=== PATIENT | female | born 1995 | race African-American/Black ===

== ENCOUNTER 2019-11-22 19:42 | Outpatient (CLI) | payer MEDICAID ==
[~2019-11-22] VITALS: Ht 145 cm; Wt 74.5 kg
--- NOTE | 2019-11-22 19:50 | NUR ---
BROOKETHANH presented to unit via ambulation from ED, accompanied by s.o., with c/o DIZZY,BLURRY VISION. BROOKETHANH weighed, gowned, voided, and to bed. EFHM and TOCO applied, VS taken. ZACKERYTHANH Stephens oriented to bed controls, call light, TV, heat, and A/C controls.
[2019-11-22 20:03] VITALS: BP 133/80
[2019-11-22 20:20] VITALS: BP 136/82
[2019-11-22 20:44] VITALS: BP 117/73
[2019-11-22 20:47] LABS: COLOR,URINE YELLOW
[2019-11-22 20:48] LABS: BILIRUBIN,URINE NEGATIVE (NEGATIVE); CLARITY,URINE CLEAR; GLUCOSE, URINE (UA) NEGATIVE (NEGATIVE); KETONES,URINE NEGATIVE (NEGATIVE); LEUKOCYTE ESTERASE ,URINE NEGATIVE (NEGATIVE); NITRITE,URINE NEGATIVE (NEGATIVE); PH,URINE 6.5 (5-9); PROTEIN,URINE NEGATIVE (NEGATIVE)
[2019-11-22 20:51] LABS: BACTERIA,URINE TRACE /HPF
[2019-11-22 20:57] VITALS: BP 116/70
[2019-11-22 21:14] VITALS: BP 110/70
[2019-11-22 21:27] VITALS: BP 113/73
[2019-11-22] MEDS ORDERED: PREN-142 PO (21:34)
--- NOTE | 2019-11-22 21:45 | NUR ---
D/C instructions given & explained, reassurance given, instructed pt. to cont. to monitor dizziness, both pt. & SO verbalized understanding & very appreciative. Copy of D/C instructions to pt. Pt. left [facility] ambulatory escorted by SO, to home via private vehicle.
--- NOTE | 2019-11-23 08:26 | Physician Query-Final Dx ---
Clinic Account Progress/Dx Physician Query: Please give diagnosis Please give # weeks gestation Date of Service Nov 22, 2019 at 19:42 NILTON WILSON Nov 23, 2019 08:26
== END 2019-11-22 21:45 | disposition home or self-care (01) ==
LOC: WSo 19:42 → LDRP 19:42 → WSo 21:45
PROVIDERS: ATTEND Obstetrics & Gynecology
DX: O99.89 Other specified diseases and conditions complicating pregnancy, childbirth and the puerperium (principal); R42 Dizziness and giddiness; Z3A.38 38 weeks gestation of pregnancy
CPT/HCPCS: 81000; 99212

== ENCOUNTER 2019-11-27 05:59 | Inpatient (IN) | payer MEDICAID ==
[2019-11-27] VITALS (76 sets, daily range): BP systolic 80–148; BP diastolic 41–101
[~2019-11-27] VITALS: Ht 142 cm; Wt 75.9 kg
[~2019-11-27 05:59] MED LIST: PREN-142 PO
[2019-11-27] MEDS ORDERED: AMPICILLIN FOR IV USE 2,000 MG in WATER (STERILE) FOR INJECTION 14.8 ML IV SCH (06:01)
--- NOTE | 2019-11-27 06:05 | NUR ---
THANH CAMPOS presented to unit via from ED, accompanied by S/O, with c/o 39WK INDUCTION. THANH CAMPOS weighed, gowned, voided, and to bed. EFHM and TOCO applied, VS taken. THANH CAMPOS oriented to bed controls, call light, TV, heat, and A/C controls.
[2019-11-27] MEDS ORDERED: D5 LR IV SOLUTION 1,000 ML IV ONE (06:26)
[2019-11-27] MEDS ORDERED: WATER (STERILE) FOR INJECTION 20 ML ONE (06:26)
[2019-11-27] MEDS ORDERED: AMPICILLIN FOR IV USE 2,000 MG VIAL ONE (06:26)
[2019-11-27] MEDS: D5 LR IV SOLUTION 1,000 ML IV SCH ×3 (06:39→23:42)
[2019-11-27] MEDS ORDERED: LACTATED RINGERS 1,000 ML IV ONE ×2 (06:55→08:11)
[2019-11-27 07:08] LABS: BASOPHILS % (AUTO) 0 % (0-10); EOSINOPHILS # (AUTO) 0.1 10^3/uL (0.0-0.3); EOSINOPHILS % (AUTO) 1 % (0-10); HEMATOCRIT 36 % (35-52); HEMOGLOBIN 11.9 G/DL (11.5-16.0); LYMPHOCYTES % (AUTO) 32 % (12-44); MEAN CORPUSCULAR HEMOGLOBIN 28 PG (25-34); MEAN CORPUSCULAR HGB CONC 34 G/DL (32-36); MEAN CORPUSCULAR VOLUME 84 FL (80-99); MEAN PLATELET VOLUME 11.3 FL (7.4-10.4); MONOCYTES # (AUTO) 0.6 X 10^3 (0.0-1.0); MONOCYTES % (AUTO) 6 % (0-12); NEUTROPHILS # (AUTO) 5.6 X 10^3 (1.8-7.8); NEUTROPHILS % (AUTO) 60 % (42-75); PLATELET COUNT 241 10^3/uL (130-400); RED CELL DISTRIBUTION WIDTH 13.3 % (10.0-14.5); WHITE BLOOD COUNT 9.4 10^3/uL (4.3-11.0)
[2019-11-27] MEDS ORDERED: SUFENTA 0.6MCG/ML BUPIVA 0.125 100 ML ONE (07:23)
[2019-11-27] MEDS: OXYTOCIN PRE-MIX DRIP 500 ML IV SCH (07:24)
[2019-11-27] MEDS ORDERED: fentaNYL INJECTION 100 MCG/2 ML AMP ONE (07:31)
[2019-11-27] MEDS ORDERED: BUPIVACAINE 0.25% 30 ML (SENSORCAINE) VIAL ONE (07:31)
--- NOTE | 2019-11-27 07:31 | History & Physical-OB/GYN ---
History of Present Illness History of Present Illness Reason for visit/HPI Ms. Issa at 39 weeks, presents for Pitocin Induction of Labor. She is GBS Positive Date of Admission Nov 27, 2019 at 05:59 Date Seen by a Provider: Nov 27, 2019 Time Seen by a Provider: 07:00 I consulted on this patient on 11/27/19 07:26 Attending Physician Teddy Singh DO Admitting Physician Teddy Singh DO Consult Allergies and Home Medications Allergies Coded Allergies: No Known Drug Allergies (Unverified , 11/22/19) Home Medications Vit No.124/Iron/FA 1 Each Tablet, 1 EACH PO DAILY, (Reported) Patient Home Medication List Home Medication List Reviewed: Yes Past Afnylbk-Mwmnxp-Nvboxe Hx Patient Social History Marrital Status: single Number of Children: 0 Number of living children: 0 Employed/Student: employed Alcohol Use: Denies Use Recreational Drug Use: No Smoking Status: Never a Smoker 2nd Hand Smoke Exposure: No Physical Abuse Screen: No Sexual Abuse: No Recent Foreign Travel: No Contact w/other who traveled: No Recent Hopitalizations: No Recent Infectious Disease Expo: No Seasonal Allergies Seasonal Allergies: No Surgeries No Respiratory No Cardiovascular No Neurological No Reproductive System Expected Date of Delivery: Dec 04, 2019 Genitourinary No Gastrointestinal No Musculoskeletal No Endocrine History of Endocrine Disorders: No HEENT History of HEENT Disorders: No Cancer No Psychosocial History of Psychiatric Problem: No Integumentary History of Skin or Integumenta: No Family Medical History Family Hx: Patient reports no known family medical history. Review of Systems Constitutional: see HPI Physical Exam Physical Exam Vital Signs Vital Signs Date Time Temp Pulse Resp B/P (MAP) Pulse Ox O2 Delivery O2 Flow Rate FiO2 11/27/19 06:28 36.4 88 18 97 Room Air Capillary Refill : Less Than 3 Seconds Labs Laboratory Tests 11/27/19 06:25: White Blood Count 9.4, Red Blood Count 4.21L, Hemoglobin 11.9, Hematocrit 36, Mean Corpuscular Volume 84, Mean Corpuscular Hemoglobin 28, Mean Corpuscular Hemoglobin Concent 34, Red Cell Distribution Width 13.3, Platelet Count 241, Me an Platelet Volume 11.3H, Neutrophils (%) (Auto) 60, Lymphocytes (%) (Auto) 32, Monocytes (%) (Auto) 6, Eosinophils (%) (Auto) 1, Basophils (%) (Auto) 0, Neutrophils # (Auto) 5.6, Lymphocytes # (Auto) 3.0, Monocytes # (Auto) 0.6, Eosinophils # (Auto) 0.1, Basophils # (Auto) 0.0 General Appearance: No Apparent Distress, WD/WN Respiratory: Chest Non Tender, Lungs Clear, Normal Breath Sounds Cardiovascular: Regular Rate, Rhythm, No Murmur Abdominal: normal bowel sounds, non tender Vagina: WNL Cervix: WNL, Other (1.5 cm/50%/-3 Vertex/Intact) Cervix OS: open Uterus: Enlarged (Gravid) Extremity: Normal Capillary Refill, Normal Inspection, Normal Range of Motion, No Calf Tenderness Assessment/Plan Assessment and Plan Intrauterine at 39 weeks 2. GBS Positive 3. GDM A1 Admission Diagnosis Admission Status: Inpatient Order (span 2 midnights) Reason for Inpatient Admission: Intrauterine at 39 weeks 2. GBS Positive 3. GDM A1 Clinical Quality Measures DVT/VTE Risk/Contraindication: Risk Factor Score Per Nursin RFS Level Per Nursing on Admit: 1=Low/No VTE PPX TEDDY SINGH DO Nov 27, 2019 07:31
[2019-11-27] MEDS: EPIDURAL (SUFENTA 0.6MCG/ML BUPIVA 0.125%) 100 ML BAG EPI SCH ×2 (08:04→18:15)
[2019-11-27] MEDS ORDERED: ONDANSETRON 4 MG/2 ML (SDV) Z0FRAN IV PRN (08:15)
[2019-11-27] MEDS ORDERED: CATHETER FLUSH 10 ML SYR IV PRN (08:15)
[2019-11-27] MEDS ORDERED: diphenhydrAMINE 50 MG/ML INJ (BENADRYL) IV PRN (08:15)
[2019-11-27] MEDS ORDERED: NALOXONE 0.4 MG/ML 1 ML (NARCAN) VIAL IV PRN (08:15)
--- NOTE | 2019-11-27 08:30 | NUR ---
DR TEMPLE NOTIFIED OF BLOOD SUGAR. DR TEMPLE ORDERS ACCUCHECKS Q4 HR WHILE PT IN LABOR.
[2019-11-27] MEDS: AMPICILLIN FOR IV USE 1,000 MG in WATER (STERILE) FOR INJECTION 7.4 ML IV SCH ×4 (10:11→23:45)
--- NOTE | 2019-11-27 11:50 | NUR ---
DR TEMPLE UPDATED ON PT REPORT. SVE, PITOCIN ON 20, UC 2-5 MIN IRRREGULAR, REACTIVE FHT. DR TEMPLE STATES WE MAY GO UP TO 30 ON PITOCIN IF NEEDED.
--- NOTE | 2019-11-27 14:23 | NUR ---
THIS RN UPDATES DR TEMPLE ON PT REPORT. SVE 3 CM, PITOCIN 28, FHT STRIP DESCRIBED. NO NEW ORDERS.
--- NOTE | 2019-11-27 18:18 | NUR ---
DR UPDATED ON PT REPORT. SVE 5CM, T REVIEWED WITH . PITOCIN RATE REPORTED. NO NEW ORDERS.
[2019-11-28] VITALS (35 sets, daily range): BP systolic 100–145; BP diastolic 55–84
[2019-11-28] MEDS: EPIDURAL (SUFENTA 0.6MCG/ML BUPIVA 0.125%) 100 ML BAG EPI SCH (02:53)
[2019-11-28] MEDS ORDERED: LIDOCAINE 1% INJ 20 ML 20 ML VIAL ONE (02:58)
[2019-11-28] MEDS: AMPICILLIN FOR IV USE 1,000 MG in WATER (STERILE) FOR INJECTION 7.4 ML IV SCH (03:44)
[2019-11-28] MEDS: OXYTOCIN PRE-MIX DRIP 500 ML IV SCH (04:40)
--- NOTE | 2019-11-28 05:37 | NUR ---
Urgent c/s called per Dr. Singh as pt. has been pushing for almost 1 hr without making progress, baby appears to be OP. Will call supervisor mending to notify.
[2019-11-28] MEDS ORDERED: CITRIC ACID/SOB CIT (BICITRA) 30 ML UDC ONE (05:38)
[2019-11-28] MEDS ORDERED: FAMOTIDINE 20MG/2ML IV (PEPCID) ONE (05:38)
[2019-11-28] MEDS ORDERED: METOCLOPRAMIDE INJ 10 MG/2 ML (REGLAN) ONE (05:38)
--- NOTE | 2019-11-28 05:39 | NUR ---
Called line supervisor to notify for urgent c/s for her to call surgery crew.
[2019-11-28] MEDS ORDERED: ceFAZolin 2 GM/50 ML NS 50 ML ONE (05:41)
[2019-11-28] MEDS ORDERED: LACTATED RINGERS 1,000 ML IV PRN ×2 (05:49)
--- NOTE | 2019-11-28 05:49 | Progress Note ---
Standard Progress Note Progress Notes/Assess & Plan Date Seen by a Provider: Nov 28, 2019 Time Seen by a Provider: 05:30 Progress/Assessment & Plan Subjective: Ms. Issa progressed to complete. Objective: Cervix: Complete/100%/0 Vertex Assessment: Intrauterine at 39 weeks 2. GBS Positive 3. GDM A1 Plan: Ms. Issa pushed for approximately an hour with no descent of the head--caput secundum. In the process she had several late decelerations. This was discussed with Ms. Issa and her --we are going to proceed with an immediate . The procedure and its associated risks were discussed. All questions were answered. Informed consent was obtained. SHANIA TEMPLE DO Nov 28, 2019 05:49
[2019-11-28] MEDS ORDERED: FAMOTIDINE 20MG/2ML IV (PEPCID) IV ONE (06:00)
[2019-11-28] MEDS ORDERED: CITRIC ACID/SOB CIT (BICITRA) 30 ML UDC PO ONE (06:00)
[2019-11-28] MEDS ORDERED: METOCLOPRAMIDE INJ 10 MG/2 ML (REGLAN) IV ONE (06:00)
[2019-11-28] MEDS ORDERED: BUPIVACAINE 0.25% 30 ML (SENSORCAINE) VIAL ONE (06:15)
[2019-11-28] MEDS ORDERED: LIDOCAINE PF 2% 5 ML (XYLOCAINE) VIAL ONE (06:15)
[2019-11-28] MEDS ORDERED: fentaNYL INJECTION 100 MCG/2 ML AMP ONE (06:15)
[2019-11-28] MEDS ORDERED: OXYTOCIN PRE-MIX DRIP 500 ML IV SCH (07:22)
[2019-11-28] MEDS ORDERED: BISACODYL 10 MG SUPP (DULCOLAX) PR NR (07:30)
[2019-11-28] MEDS ORDERED: MEASLES,MUMPS,RUBELLA 1 EA INJ SC SCH (07:30)
[2019-11-28] MEDS ORDERED: ONDANSETRON 4 MG/2 ML (SDV) Z0FRAN IVP PRN (07:30)
[2019-11-28] MEDS ORDERED: TETANUS,DIPTH,PERTUSS P/F (BOOSTRIX) 0.5 ML VIAL IM SCH (07:30)
[2019-11-28] MEDS ORDERED: fentaNYL INJECTION 100 MCG/2 ML AMP IVP PRN (07:30)
--- NOTE | 2019-11-28 07:34 | Cesarean Section Operative ---
Procedure Procedure Note Pre-operative Diagnosis: Darcie Issa is a (24 /Para / ,Gestational Age (wks)39 with [GBS Positive 3. GDM A1 4. Secondary of Descent of Vertex 5. Late Heart Deceleration 6. Caput Secundum] Post-operative Diagnosis: same [and Right Occiput Transverse and Nuchal Cord x 1] Procedure: [Primary] low transverse section Physician: SHANIA TEMPLE Skip Tracer: [None] Estimated blood loss: [400] mL Disposition: [A healthy viable male to nursery, mother to Recovery Room] Findings: Viable [Male] , Apgars [], weight [6 lb 14 oz], intact placenta, 3vc, normal appearing uterus, tubes, and ovaries. Indications:Darcie Issa is a (24 /Para / ,Gestational Age (wks)39 presenting for [Pitocin Induction of Labor. After progressing to complete, she pushed for an hour with no further descent and having several late decelerations. It was discussed with Ms. Issa and her and decided to proceed with an immediate C-Seciton]. Procedure Details: The patient was seen in pre-op and the procedure was discussed with the patient in full, including the risks, benefits, and alternatives. All questions were answered. The patient was taken to the operating room and a time out was performed, verifying patient and procedure. After Epidural anesthesia was placed by our anesthesia colleagues, the patient was placed in the dorsal supine with leftward tilt for uterine displacement.~ He r abdomen was then prepped and draped in the typical sterile fashion. A Pfannenstiel skin incision was made using a scalpel and carried down through the underlying fascia. The fascia was incised in the midline and tented up using Deborah clamps. On both the inferior and superior fascia side the rectus muscle was dissected off bluntly and sharply using Lawrence scissors. The peritoneum was identified and entered bluntly in the midline. This was then stretched laterally using manual strength. After entering the abdominal cavity and confirming lack of intraperitoneal adhesions, a large López retractor was placed and the lower uterine segment was visualized. A bladder flap was created with the use of Metzenbaum scissors.~ A scalpel was utilized to make a low transverse uterine incision. Amniotomy was performed with an Allis clamp with return of clear fluid. The infant's head was grasped and brought to the level of the incision. Fundal pressure was applied and infant was delivered without difficulty. Mouth and nares were suctioned with bulb suction. After the umbilical cord was clamped and cut, the infant was handed off to the pediatric staff where NRP protocol was followed. A sample of cord blood was then obtained. The placenta was delivered intact via uterine massage. The uterus was exteriorized and cleared of all clots and debris. The uterine incision was closed using 0 Vicryl in a running locked fashion. A second imbricated layer was placed using 0 Vicryl in a running fashion as well. The uterus was flexed forward and the posterior rectouterine space was inspected and cleared of all clots and debris. Again the hysterotomy site was examined and hemostasis was observed. The bilateral tubes and ovaries appeared normal. The uterus was placed back into the abdominal cavity and abdominal gutters were cleared of all clots and debris. A final check of the uterine incision showed it to be hemostatic. The peritoneum was closed using 3-0 Vicryl in a running fashion. The fascia was closed with 0 Vicryl in a running fashion. The subcutaneous space was hemostatic, and irrigated. The subcutaneous space was closed with 3-0 Vicryl in several single interrupted stitches. The skin was then closed using 4-0 Monocryl in a running subcuticular fashion. The skin edges were reapproximated together and were hemostatic. A pressure dressing was applied. All sponge, lap and needle counts were correct at the end of the procedure per nursing. Vitals - Labs Vital Signs - I&O Vital Signs Date Time Temp Pulse Resp B/P (MAP) Pulse Ox O2 Delivery O2 Flow Rate FiO2 11/28/19 06:15 108 18 107/63 (78) Room Air 11/28/19 06:00 37.4 110 18 107/59 (75) Room Air 11/28/19 05:45 115 18 101/55 (70) Room Air 11/28/19 05:30 37.3 101 18 141/67 (91) 97 Room Air 11/28/19 05:15 111 18 143/68 (93) Room Air 11/28/19 05:00 107 18 141/76 (97) Room Air 11/28/19 04:45 97 18 145/81 (102) 98 Room Air 11/28/19 04:30 37.2 101 18 135/81 (99) 97 Room Air 11/28/19 04:15 96 18 137/84 (101) 98 Room Air 11/28/19 04:00 93 18 128/75 (92) 97 Room Air 11/28/19 03:45 36.8 93 18 123/76 (92) 97 Room Air 11/28/19 03:30 96 18 139/83 (101) 97 Room Air 11/28/19 03:15 90 18 130/79 (96) 97 Room Air 11/28/19 03:00 93 18 121/78 (92) 97 Room Air 11/28/19 02:45 36.9 91 18 117/67 (84) 98 Room Air 11/28/19 02:30 93 18 119/66 (83) 97 Room Air 11/28/19 02:15 92 18 130/72 (91) 97 Room Air 11/28/19 02:00 96 18 115/64 (81) 98 Room Air 11/28/19 01:45 90 18 125/66 (85) 97 Room Air 11/28/19 01:30 90 18 119/68 (85) 97 Room Air 11/28/19 01:15 91 18 131/76 (94) 97 Room Air 11/28/19 01:00 86 18 135/78 (97) 99 Room Air 11/28/19 00:45 37.1 96 18 134/77 (96) 98 Room Air 11/28/19 00:30 92 18 124/70 (88) 98 Room Air 11/28/19 00:15 90 18 125/70 (88) 98 Room Air 11/28/19 00:00 90 18 118/71 (87) 97 Room Air 11/27/19 23:45 36.8 88 18 127/73 (91) 98 Room Air 11/27/19 23:30 92 18 140/78 (98) 99 Room Air 11/27/19 23:15 88 18 119/65 (83) 97 Room Air 11/27/19 23:00 86 18 135/78 (97) 98 Room Air 11/27/19 22:45 85 18 134/72 (92) 99 Room Air 11/27/19 22:30 86 18 134/75 (94) 100 Room Air 11/27/19 22:15 36.6 84 18 136/74 (94) 98 Room Air 220 22:05 79 18 123/66 (85) 99 Room Air 220 22:00 80 18 127/74 (91) 98 Room Air 220 21:55 80 18 124/69 (87) 99 Room Air 220 21:50 76 18 117/65 (82) 97 Room Air 220 21:45 36.9 79 18 128/71 (90) 98 Room Air 220 21:40 81 18 121/67 (85) 98 Room Air 220 21:35 80 18 118/64 (82) 98 Room Air 220 21:30 82 18 126/72 (90) 97 Room Air 11/27/19 21:15 75 18 126/73 (90) 98 Room Air 11/27/19 21:00 77 18 141/83 (102) 98 Room Air 220 20:45 94 18 148/94 (112) 98 Room Air 20 20:30 80 18 130/79 (96) 98 Room Air 20 20:15 80 18 138/85 (102) 99 Room Air 20 20:00 77 18 128/70 (89) 99 Room Air 11/27/19 19:45 36.6 78 18 137/86 (103) 100 Room Air 11/27/19 19:30 76 18 148/88 (108) 99 Room Air 11/27/19 19:15 82 18 111/64 (80) 99 Room Air 11/27/19 19:00 74 120/59 (79) 99 Room Air 2/20 18:45 77 112/61 (78) 98 Room Air 2/20 18:30 77 105/57 (73) 98 Room Air 2/20 18:15 83 111/53 (72) 99 Room Air 2/20 18:00 36.6 76 16 118/70 (86) 98 Room Air 2/20 17:45 75 110/60 (77) 98 Room Air 2/20 17:30 72 113/66 (82) 99 Room Air 2/20 17:15 73 112/68 (83) 99 Room Air 220 17:00 77 124/57 (79) 100 Room Air 2/20 16:45 80 119/67 (84) 100 Room Air 11/27/19 16:30 75 105/57 (73) 99 Room Air 20 16:15 75 104/59 (74) 99 Room Air 220 16:00 77 110/59 (76) 98 Room Air 2 15:45 36.2 75 121/74 (90) 99 Room Air 11/27/19 15:30 78 16 124/72 (89) 98 Room Air 20 15:15 78 125/77 (93) 99 Room Air 11/27/19 15:00 75 128/78 (95) 99 Room Air 11/27/19 14:45 84 130/78 (95) 100 Room Air 11/27/19 14:30 78 121/79 (93) 99 Room Air 11/27/19 14:15 36.5 75 16 117/78 (91) 98 Room Air 11/27/19 14:00 Room Air 11/27/19 13:45 Room Air 11/27/19 13:30 75 111/68 (82) 98 Room Air 11/27/19 13:15 73 116/67 (83) 98 Room Air 11/27/19 13:00 76 111/66 (81) 99 Room Air 11/27/19 12:45 76 97/55 (69) 99 Room Air 11/27/19 12:30 36.7 87 16 100/57 (71) 99 Room Air 11/27/19 12:15 86 107/64 (78) 100 Room Air 11/27/19 12:00 75 96/52 (67) 98 Room Air 11/27/19 11:45 75 94/53 (67) 98 Room Air 11/27/19 11:30 75 97/53 (68) 98 Room Air 20 11:15 72 91/53 (66) 99 Room Air 11/27/19 11:00 36.4 76 105/101 (102) 99 Room Air 20 10:45 73 105/63 (77) 98 Room Air 2 10:30 74 107/65 (79) 99 Room Air 20 10:15 82 103/66 (78) 98 Room Air 220 10:00 36.1 90 16 117/69 (85) 99 Room Air 11/27/19 09:45 75 111/68 (82) 98 Room Air 11/27/19 09:30 82 100 Room Air 11/27/19 09:15 78 106/69 (81) 99 Room Air 11/27/19 09:00 76 108/63 (78) 98 Room Air 11/27/19 08:50 82 105/64 (78) Room Air 11/27/19 08:45 90 108/83 (91) 98 Room Air 11/27/19 08:40 79 105/61 (76) Room Air 11/27/19 08:35 80 106/61 (76) Room Air 11/27/19 08:30 87 100/58 (72) 98 Room Air 11/27/19 08:25 81 109/63 (78) Room Air 11/27/19 08:20 77 102/59 (73) Room Air 11/27/19 08:15 73 113/57 (75) 98 Room Air 11/27/19 08:11 69 80/41 (54) Room Air 11/27/19 08:08 80 82/51 (61) Room Air 11/27/19 08:05 85 142/63 (89) Room Air 11/27/19 08:00 76 135/59 (84) 98 Room Air 11/27/19 07:45 36.4 85 16 139/65 (89) 98 Room Air I & O 11/28/19 07:00 Intake Total 3053.8 ml Output Total 0 ml Balance 3053.8 ml Labs Laboratory Tests 11/27/19 10:08: Glucometer 95 11/27/19 14:29: Glucometer 86 11/27/19 19:36: Glucometer 95 11/28/19 02:55: Glucometer 127H SHANIA TEMPLE DO Nov 28, 2019 07:34
[2019-11-28] MEDS: KETOROLAC 30 MG/ML VIAL IV SCH ×3 (08:18→21:22)
--- NOTE | 2019-11-28 09:14 | Anesthesia-Regional Post-Op ---
Regional Patient Condition Mental Status: Alert, Oriented x3 Circulation: Same as Pre-Op Headache: Absent Sensation: Full Recovery Motor Block: Absent Post Op Complications Complications None Follow Up Care/Instructions Patient Instructions None needed. Anesthesia/Patient Condition Patient is doing well, no complaints, stable vital signs, no apparent adverse anesthesia problems. No complications reported per nursing. ELIS CLARK CRNA Nov 28, 2019 09:14
--- NOTE | 2019-11-28 09:30 | NUR ---
Report from Ryan Kwon RN. Care of patient assumed.
--- NOTE | 2019-11-28 09:54 | NUR ---
Dulcolax Suppository placed by this RN.
--- NOTE | 2019-11-28 11:30 | NUR ---
Oxycodone 5mg PO given for patient's c/o pain.
--- NOTE | 2019-11-28 12:00 | NUR ---
Patient assisted up to restroom. + void noted. [facility]icare reviewed. Clean pad and panties applied. Patient states that she feels a little "nauseous." Patient ambulated back to bed. Clean hospital gown provided. SCD's back on.
[2019-11-28] MEDS: ACETAMINOPHEN 500 MG TAB (TYLENOL) PO SCH ×2 (12:20→18:02)
[2019-11-28] MEDS: METOCLOPRAMIDE 10 MG (REGLAN) TAB PO SCH ×2 (12:20→18:02)
[2019-11-28] MEDS: DOCUSATE SODIUM 100 MG (COLACE) CAP PO SCH ×2 (12:20→21:22)
[2019-11-28] MEDS: CATHETER FLUSH 10 ML SYR IV SCH ×2 (15:49→21:22)
--- NOTE | 2019-11-28 19:52 | NUR ---
Called Dr. Singh, update given including that f/c has been removed, pt. has voided & had BM, new orders rc'd to D/C MOM & Reglan.
--- NOTE | 2019-11-28 20:00 | NUR ---
yamila Roca RN @ bedside assisting pt. & SO to feed infant.
[2019-11-29 00:21] VITALS: BP 118/73
[2019-11-29] MEDS: ACETAMINOPHEN 500 MG TAB (TYLENOL) PO SCH ×3 (00:21→15:11)
[2019-11-29 04:05] VITALS: BP 130/81
[2019-11-29] MEDS ORDERED: MILK OF MAGNESIA 400 MG/5 ML 30 ML UDC PO NR (05:00)
[2019-11-29 05:15] VITALS: BP 90/55
[2019-11-29] MEDS: KETOROLAC 30 MG/ML VIAL IV SCH (05:44)
[2019-11-29] MEDS: CATHETER FLUSH 10 ML SYR IV SCH (05:44)
[2019-11-29 06:27] LABS: BASOPHILS % (AUTO) 0 % (0-10); EOSINOPHILS # (AUTO) 0.1 10^3/uL (0.0-0.3); EOSINOPHILS % (AUTO) 0 % (0-10); HEMATOCRIT 28 % (35-52); HEMOGLOBIN 9.4 G/DL (11.5-16.0); LYMPHOCYTES % (AUTO) 12 % (12-44); MEAN CORPUSCULAR HEMOGLOBIN 29 PG (25-34); MEAN CORPUSCULAR HGB CONC 34 G/DL (32-36); MEAN CORPUSCULAR VOLUME 84 FL (80-99); MONOCYTES # (AUTO) 0.8 X 10^3 (0.0-1.0); MONOCYTES % (AUTO) 5 % (0-12); NEUTROPHILS # (AUTO) 13.4 X 10^3 (1.8-7.8); NEUTROPHILS % (AUTO) 83 % (42-75); PLATELET COUNT 173 10^3/uL (130-400); RED CELL DISTRIBUTION WIDTH 13.2 % (10.0-14.5); WHITE BLOOD COUNT 16.2 10^3/uL (4.3-11.0)
[2019-11-29] MEDS ORDERED: OXC5T PO (06:41)
[2019-11-29] MEDS ORDERED: IBUP-1780 PO (06:41)
[2019-11-29] MEDS ORDERED: DOCU-244 PO (06:41)
[2019-11-29] MEDS ORDERED: ACET-93 PO (06:41)
--- NOTE | 2019-11-29 06:48 | Discharge Summary ---
Diagnosis/Chief Complaint Date of Admission Nov 27, 2019 at 05:59 Date of Discharge November 29, 2019 Discharge Date: Nov 29, 2019 Discharge Time: 08:00 Admission Diagnosis Admission Diagnosis Intrauterine at 39 weeks 2. GBS Positive 3. GDM A1 Discharge Diagnosis Intrauterine at 39 weeks--delivered 2. GBS Positive 3. GDM A1 4. Secondary Arrest of Descent 5. Caput Secundum 6. Right Occiput Transverse Reason Hospital Visit Ms. Issa at 39 weeks, presents for Pitocin Induction of Labor. She is GBS Positive Discharge Summary Hospital Course Was the Problem List Reviewed?: Yes Hospital Course Ms. Issa was admitted to the hospital for Pitocin Induction of Labor. She progressed to complete, but after an hour of pushing with no further descent of the vertex a Primary Low Transverse was performed. A healthy viable male was delivered without complications. She was given pain management and comfort care after surgery. Postoperative Day #1 found Ms. Issa ambulating, tolerating a Regular Diet, voiding freely, controlling her pain with oral medications Her vital signs remained stable throughout her hospitalization. We will discharge her to home with instructions, prescriptions and a follow up appointment. Labs Laboratory Tests 11/27/19 06:25: Red Blood Count 4.21L, Mean Platelet Volume 11.3H 11/27/19 10:08: 11/27/19 14:29: 11/27/19 19:36: 11/28/19 02:55: Glucometer 127H 11/29/19 05:36: Procedures None. Discharge Physical Examination Allergies: Coded Allergies: No Known Drug Allergies (Unverified , 11/22/19) Vitals & I&Os Vital Signs Date Time Temp Pulse Resp B/P (MAP) Pulse Ox O2 Delivery O2 Flow Rate FiO2 11/29/19 04:05 36.8 88 18 130/81 (97) 98 Room Air General Appearance: Alert, Oriented X3, Cooperative HEENT: Atraumatic Respiratory: Clear to Auscultation, Normal Air Movement Cardiovascular: Regular Rate, No Murmurs Abdominal: Normal Bowel Sounds, Soft, Other (Incision is clean, dry and well approximated) Extremities: No Clubbing, No Cyanosis Skin: No Rashes Neuro: Normal Gait, Normal Speech Psych/Mental Status: Mental Status NL Discharge Home Medications Reviewed and agree with Discharge Medication list on patient's Discharge Instruction sheet Instructions to Patient/Family Please see electronic discharge instructions given to patient. Clinical Quality Measures DVT/VTE Risk/Contraindication: Risk Factor Score Per Nursin RFS Level Per Nursing on Admit: 1=Low/No VTE PPX SHANIA TEMPLE DO Nov 29, 2019 06:48
[2019-11-29] MEDS: DOCUSATE SODIUM 100 MG (COLACE) CAP PO SCH (09:00)
[2019-11-29 12:13] VITALS: BP 117/76
[2019-11-29] MEDS ORDERED: IBUPROFEN 800 MG (MOTRIN) TAB PO SCH (13:30)
--- NOTE | 2019-11-29 15:10 | NUR ---
Discharge instructions explained to pt with copy provided to pt along with prescriptions. Pt verbalizes understanding of teaching, denies questions or concerns at this time. Pt notified of follow up appts.
--- NOTE | 2019-11-29 16:00 | NUR ---
Pt ambulates off unit to private vehicle with all personal belongings, accompanied by RN, S.O. and infant. No s/s of distress noted.
== END 2019-11-29 16:00 | disposition home or self-care (01) | DRG 788 ==
LOC: LDRP 05:59
PROVIDERS: ADMIT Obstetrics & Gynecology; ATTEND Obstetrics & Gynecology
PROC: 10D00Z1 Extraction of Products of Conception, Low, Open Approach (ICD-10-PCS; principal; 2019-11-28 06:45)
DX: O24.420 Gestational diabetes mellitus in childbirth, diet controlled (principal); O99.824 Streptococcus B carrier state complicating childbirth; O32.4XX0 Maternal care for high head at term, not applicable or unspecified; O76 Abnormality in fetal heart rate and rhythm complicating labor and delivery; O69.81X0 Labor and delivery complicated by cord around neck, without compression, not applicable or unspecified; O32.2XX0 Maternal care for transverse and oblique lie, not applicable or unspecified; Z37.0 Single live birth; Z3A.39 39 weeks gestation of pregnancy
CPT/HCPCS: 36415; 82947; 82962; 85025; 86850; 86900; 86901